=== PATIENT | male | born 1945 ===

== ENCOUNTER 2019-01-19 16:10 | Emergency (ER) | payer OTHER ==
[~2019-01-19] VITALS: Ht 165.1 cm; Wt 77.1 kg
[2019-01-19] MEDS ORDERED: LOSARTAN POTAS100 MG (16:34)
[2019-01-19] MEDS ORDERED: ZESTRIL20 MG (16:34)
[2019-01-19] MEDS ORDERED: FORTAMET500 MG (16:36)
[2019-01-19] MEDS ORDERED: ASPIR 8181 MG (16:36)
[2019-01-19] MEDS ORDERED: CALTRATE 600 +1 EACH (16:40)
[2019-01-19] MEDS ORDERED: CAMBIA50 MG (16:40)
[2019-01-19] MEDS ORDERED: CLARITIN10 M1 (16:40)
[2019-01-19] MEDS ORDERED: RESTORIL15 MG (16:41)
[2019-01-19] MEDS ORDERED: VASOFLEX D1 CA1 EACH (16:41)
[2019-01-19] MEDS ORDERED: ZOCOR20 MG (16:41)
[2019-01-20] MEDS ORDERED: NIFEDIPINE ER30 M1 PO ×2 (03:55→03:56)
== END 2019-01-20 18:32 | disposition home or self-care (01) ==
LOC: ER 16:10
DX: I16.0 Hypertensive urgency (principal); I10 Essential (primary) hypertension

== ENCOUNTER 2019-01-20 00:12 | Emergency (ER) | payer OTHER ==
[~2019-01-20] VITALS: Ht 165.1 cm; Wt 74.8 kg
[~2019-01-20 00:12] MED LIST: ASPIR 8181 MG; CALTRATE 600 +1 EACH; CAMBIA50 MG; CLARITIN10 M1; FORTAMET500 MG; LOSARTAN POTAS100 MG; RESTORIL15 MG; VASOFLEX D1 CA1 EACH; ZESTRIL20 MG; ZOCOR20 MG
[2019-01-20] MEDS ORDERED: NIFEDIPINE ER30 M1 PO ×2 (03:55→03:56)
== END 2019-01-20 04:02 | disposition home or self-care (01) ==
LOC: ER 00:12
DX: I16.0 Hypertensive urgency (principal); I10 Essential (primary) hypertension